=== PATIENT | female | born 1965 | race Caucasian/White ===

== ENCOUNTER 2016-09-23 18:43 | Emergency (ER) | payer BC ==
[~2016-09-23] VITALS: Ht 162.6 cm; Wt 66.5 kg
[2016-09-23 18:52] VITALS: Ht 162.6 cm; Wt 66.5 kg
[2016-09-23] MEDS ORDERED: IBUP-1542 PO (19:51)
--- NOTE | 2016-09-23 19:54 | ERD ---
ER Documentation Chief Complaint Date/Time DATE: 09/23/16 TIME: 19:52 Chief Complaint left arm pain/tingling denies arreola and cp HPI This 30-year-old female complains of pain in the left arm over the last few weeks. Today she is worried because she felt some tingling in her hand. She is worried about his heart. She has a history of trauma. The pain radiates from her left shoulder down her left arm. She denies any anterior chest pain, shortness of breath, additional symptoms. ROS All systems reviewed and are negative except as per history of present illness. Medications Home Meds Active Scripts Ibuprofen* (Motrin*) 600 Mg Tab, 600 MG PO Q6, #20 TAB Prov:JOSEFINA WHITEHEAD MD 09/23/16 Allergies Allergies: Coded Allergies: No Known Allergy (Unverified , 09/23/16) PMhx/Soc Medical and Surgical Hx: pt denies Medical Hx, pt denies Surgical Hx History of Surgery: Yes (CAESARIAN SECTION) Anesthesia Reaction: No Hx Neurological Disorder: No Hx Respiratory Disorders: No Hx Cardiac Disorders: No Hx Psychiatric Problems: No Hx Miscellaneous Medical Probl: No Hx Alcohol Use: Yes (SOCIALLY) Hx Substance Use: No Hx Tobacco Use: Yes (1 PACK/WEEK) Smoking Status: Never smoker Physical Exam Vitals Vital Signs Date Time Temp Pulse Resp B/P Pulse Ox O2 Delivery O2 Flow Rate FiO2 09/23/16 18:52 98.1 82 20 144/77 98 Physical Exam Const: [] Alert, [id number]. Head: Atraumatic Eyes: Normal Conjunctiva ENT: Normal External Ears, Nose and Mouth. Neck: Full range of motion..~ No meningismus. Possibly mild reproducible symptoms with passive range of motion of the cervical spine. Resp: Clear to auscultation bilaterally Cardio: Regular rate and rhythm, no murmurs Abd: Soft, non tender, non distended. Normal bowel sounds Skin: No petechiae or rashes Back: No midline or flank tenderness Ext: No cyanosis, or edema. No appreciable tenderness over the location of the patient's symptoms appear to radiate from the trapezius and cervical spine area. Pulses are 2+. No Tinel signs, weakness or restricted range of motion. Neur: Awake and alert Psych: Normal Mood and Affect Procedures/MDM X-ray C spine 3V Interpreted by me: Bones: [No fracture] Joints: No dislocation Foreign body: None. Impression-degenerative changes at C5-C6. EKG: Rate/Rhythm: [Normal Sinus Rhythm] rate equals 61 QRS, ST, T-waves: [No changes consistent w/ acute ischemia] Impression: [No evidence of ischemia or arrhythmia]. Patient has a normal EKG Patient presents with left arm pain and paresthesias likely cervical radicular symptoms. Signs or symptoms are not suggestive of acute coronary syndrome, bacterial infection, neurologic deficit. She will treated with ibuprofen and further observation at home. Patient was advised to follow-up with primary doctor for further evaluation treatment especially referral to return to the ER for new or worsening symptoms. Departure Diagnosis: Primary Impression: Cervical radicular pain Additional Impression: Pain of left arm Condition: Stable Patient Instructions: Radiculopathy, Cervical Additional Instructions: EKG normal. X-ray shows some degenerative changes is likely cause of pain or pinched nerve. Recommend primary doctor for physical therapy and possible referral if further treatment. Recheck for fevers, new or worsening symptoms. JOSEFINA WHITEHEAD MD Sep 23, 2016 19:54
--- NOTE | 2016-09-23 19:59 | RADRPT ---
PROCEDURE: XR Cervical Spine. CLINICAL INDICATION: Neck pain. TECHNIQUE: Three views of the cervical spine were performed. Frontal, lateral, and AP open-mouth o dontoid. The images were reviewed on a PACS workstation. COMPARISON: None. FINDINGS: There is normal stature of the vertebrae. There is no fracture. There is no lytic or blastic lesion. There are degenerative changes with disk space narrowing and osteophytes at C5-6. There is mild ret rolisthesis at C5-6 measuring 2 mm. Alignment is otherwise normal. The prevertebral soft tissues are normal. IMPRESSION: 1. Degenerative changes at C5-6. 2. Mild retrolisthesis at C5-6 measuring 2 mm. 3. Otherwise unremarkable images of the cervical spine. RPTAT: QQ .Shashi Flowers MD, Date Time Electronically viewed and signed by .Shashi Flowers MD, MD on 09/23/2016 19:58 .R/
== END 2016-09-23 20:15 | disposition home or self-care (01) ==
LOC: FTE 18:43
DX: M54.12 Radiculopathy, cervical region (principal); F17.210 Nicotine dependence, cigarettes, uncomplicated
CPT/HCPCS: 72040; 93005

== ENCOUNTER 2017-04-24 08:57 | Emergency (ER) | payer BC ==
[~2017-04-24] VITALS: Ht 165.1 cm; Wt 60.5 kg
[~2017-04-24 08:57] MED LIST: IBUP-1542 PO
[2017-04-24 08:58] VITALS: Ht 165.1 cm; Wt 60.5 kg
[2017-04-24] MEDS ORDERED: ACET325T33 PO (09:16)
--- NOTE | 2017-04-24 09:28 | ERA ---
ER Documentation Chief Complaint Date/Time DATE: 04/24/17 TIME: 09:19 Chief Complaint intermittent 8/10 head pain x yesterday HPI 51-year-old female presented with a chief complaint of intermittent stabbing like pain on the side of the head travels to the top. Patient has not had symptoms like this before. Her symptoms were yesterday. 3 episodes yesterday and 2 episodes today. Patient has not taken any medications to relieve the pain. Denies any headache, photophobia, change in vision, slurred speech, change in hearing, change in taste or other rapidly progressive neurological deficits. Patient smokes cigarettes occasionally but cannot quantify a pack per day. Denies alcohol use or other medical conditions. No current symptoms. No other complaints and describes no other associated manifestations. ROS All systems reviewed and are negative except as per history of present illness. Medications Home Meds Active Scripts Acetaminophen* (Tylenol*) 325 Mg Tablet, 1 TAB PO Q6 Y for PAIN AND OR ELEVATED TEMP, #20 TAB Prov:CRISTO RAMOS PA-C 04/24/17 Ibuprofen* (Motrin*) 600 Mg Tab, 600 MG PO Q6, #20 TAB Prov:JOSEFINA HWITEHEAD MD 09/23/16 Allergies Allergies: Coded Allergies: No Known Allergy (Unverified , 04/24/17) PMhx/Soc History of Surgery: Yes (CAESARIAN SECTION) Anesthesia Reaction: No Hx Neurological Disorder: No Hx Respiratory Disorders: No Hx Cardiac Disorders: No Hx Psychiatric Problems: No Hx Miscellaneous Medical Probl: No Hx Alcohol Use: Yes (SOCIALLY) Hx Substance Use: No Hx Tobacco Use: Yes (1 PACK/WEEK) Physical Exam Vitals Vital Signs Date Time Temp Pulse Resp B/P Pulse Ox O2 Delivery O2 Flow Rate FiO2 04/24/17 08:58 98.2 77 16 140/67 99 Physical Exam Const: Well-appearing well-developed 51-year-old female no acute distress Head: Atraumatic. Normocephalic. Eyes: Normal Conjunctiva. No nystagmus. PERRLA, EOMI bilaterally ENT: Normal External Ears, Nose and Mouth. Neck: Full range of motion..~ No meningismus. No bruits Resp: Clear to auscultation bilaterally Cardio: Regular rate and rhythm, no murmurs Abd: Soft, non tender, non distended. Normal bowel sounds Skin: No petechiae or rashes Back: No midline or flank tenderness Ext: No cyanosis, or edema Neur: Awake and alert. Neurovascularly intact. Hand group director experience equal strength bilaterally. No facial droop. Psych: Normal Mood and Affect Procedures/MDM Well-appearing well-developed 51-year-old female presenting with a chief complaint of episodic sharp pains from his head to head to the top. Denies any other symptoms. Physical exam is unremarkable. I have little suspicion for intracranial pathology including bleed and stroke at this time. Most likely diagnosis is migraine versus trigeminal neuralgia versus sharp pain of unknown etiology. Patient will be given Tylenol for discomfort and has been advised to follow-up with PCP or neurology in the next 2-3 days. I have spoke with the patient regarding their condition and future management. They have verbally responded that they understand their status and treatment plan. The patients vitals are stable, and their current condition is appropriate for discharge. The patient will be given discharge instructions with return precautions. Departure Diagnosis: Primary Impression: Head pain Qualified Code: R51 - Nonintractable episodic headache, unspecified headache type Condition: Stable Patient Instructions: Self-Care for Headaches, Trigeminal Neuralgia Referrals: KAI WINKLER MD,EDUIN LOVE MD, CHRISTOPHER V. MD HIJAZIN,MEERA CUMMINGS,TERESA LEMUS WEI MILLER, CHAD M. MD NAYYAR, KANWAL K MD [facility] YOU HAVE RECEIVED A MEDICAL SCREENING EXAM AND THE RESULTS INDICATE THAT YOU DO NOT HAVE A CONDITION THAT REQUIRES URGENT TREATMENT IN THE EMERGENCY DEPARTMENT. FURTHER EVALUATION AND TREATMENT OF YOUR CONDITION CAN WAIT UNTIL YOU ARE SEEN IN YOUR DOCTORS OFFICE WITHIN THE NEXT 1-2 DAYS. IT IS YOUR RESPONSIBILITY TO MAKE AN APPOINTMENT FOR FOLOW-UP CARE. IF YOU HAVE A PRIMARY DOCTOR --you should call your primary doctor and schedule an appointment IF YOU DO NOT HAVE A PRIMARY DOCTOR YOU CAN CALL OUR PHYSICIAN REFERRAL HOTLINE AT IF YOU CAN NOT AFFORD TO SEE A PHYSICIAN YOU CAN CHOSE FROM THE FOLLOWING [facility] [address] [facility] [address] [facility] [facility] [address] [facility] [address] [facility] [address] [facility]. [facility] [address] [facility] URGENT CARE/SPECIALTIES Additional Instructions: Follow up with your PCP within the next 1-3 days for a more thorough evaluation and a possible referral to a specialist. Return the the emergency department immediately if symptoms worsen or change. If you have any questions regarding medications, ask your pharmacist or us before you leave. If any adverse reactions occur while taking your medications, discontinue the treatment and return to the emergency department immediately. Take your medications as directed, and complete the entire course of treatment. CRISTO RAMOS PA-C Apr 24, 2017 09:28
[2017-04-24 09:54] VITALS: BP 134/71; PULSE 71; RESP 16; TEMP 98
== END 2017-04-24 09:55 | disposition home or self-care (01) ==
LOC: FTE 08:57
DX: R51 Headache (principal); Z87.891 Personal history of nicotine dependence
CPT/HCPCS: 99283

== ENCOUNTER 2018-07-26 13:37 | Emergency (ER) | END 2018-07-26 15:27 | disposition home or self-care (01) ==